=== PATIENT | female | born 1940 | race Caucasian/White ===

== ENCOUNTER 2018-01-05 20:42 | Inpatient (IN) ==
[2018-01-05] MEDS ORDERED: Isovue-370 500 ML INFUS..BTL IV ONE (23:13)
[2018-01-05] MEDS ORDERED: Piperacillin/Tazobactam 3.375 GM in 0.9 % Sodium Chloride Mini Bag 100 ML IVPB ONE (23:18)
[2018-01-05] MEDS ORDERED: *HR* FentaNYL (PF) 100 MCG/2 ML VIAL IVP ONE (23:32)
[2018-01-05] MEDS ORDERED: Ondansetron 4 MG/2 ML VIAL IVP ONE (23:32)
--- NOTE | 2018-01-05 23:48 | Emergency Department Note ---
Disposition Clinical Impression: Abscess of buttock, right Disposition: Still a Patient Condition: Fair Referrals: Evans Arciniega MD [Primary Care Provider] - Forms: ED Satisfaction Letter General Adult HPI - General Chief complaint: ED Skin/Abscess/Foreign Body Stated complaint: sore bottom, poss boil. Time Seen by Provider: 01/05/18 22:51 Source: patient Mode of arrival: ambulatory Limitations: no limitations Nursing Notes Reviewed: Yes Vital Signs Reviewed: Yes - History of Present Illness HPI Narrative: 77-year-old female in no significant past medical history presenting to the emergency department with chief complaint of "boil on my butt". Patient states she noticed the area couple days ago. Denies trying any intervention at home. She states it has just gotten larger and more painful and she came in for further evaluation. Denies any fevers, chest pain, shortness of breath, nausea or vomiting. Patient denies any previous skin infections or MRSA infections. Pain Scale: 8 - Related Data Previous Rx's Medication Instructions Recorded OxyCODONE/APAP 5/325 [Percocet 1 each PO Q6HR PRN 7 Days #28 11/04/17 5/325 MG] tablet Allergies Allergy/AdvReac Type Severity Reaction Status Date / Time No Known Allergies Allergy Verified 01/05/18 21:14 All systems ED: reviewed and negative except as stated. Constitutional: Denies: fever, chills, weakness Eyes: Reports: as per HPI ENT ED: Reports: as per HPI Cardiovascular: Denies: chest pain, palpitations Respiratory: Denies: cough, dyspnea, wheezes Gastrointestinal: Reports: as per HPI Genitourinary: Reports: as per HPI Musculoskeletal: Reports: as per HPI Integumentary: Reports: as per HPI Neurological: Denies: numbness, paresthesias Psychiatric: Reports: as per HPI Endocrine: Reports: as per HPI Hematological/Lymphatic: Reports: as per HPI Allergic/Immunologic: Reports: as per HPI Past Medical History - Past Medical History Attestation: Yes The following information was validated with the patient. Medical history: Reports: asthma, thyroid disease Psychiatric history: Reports: no psych history - Social History Smoking Status: Never smoker Alcohol use: Reports: none Drug use: Reports: none Physical Exam - General Limitations: no limitations General appearance: alert, in no apparent distress - Head Head exam: atraumatic, normocephalic, normal inspection - Eye Eye exam: Present: normal appearance. Absent: scleral icterus, conjunctival injection - ENT ENT exam: normal exam, mucous membranes moist - Neck Neck exam: Present: normal inspection, full ROM. Absent: tenderness, meningismus - Chest Chest inspection: Present: normal inspection, symmetric chest wall rise. Absent : tenderness, rash - Respiratory Respiratory exam: Present: normal lung sounds bilaterally. Absent: respiratory distress, wheezes - Cardiovascular Cardiovascular exam: Present: regular rate, normal rhythm, normal heart sounds - Abdominal Exam Abdominal exam: Present: soft, Non-Tender. Absent: distention, guarding, rebound - Extremities Exam Extremities exam: Present: normal inspection, full ROM - Neurological Exam Neurological exam: Present: alert, oriented X3 - Psychiatric Psychiatric exam: Present: normal affect, normal mood - Skin Skin exam: Present: other (Redness, induration and tenderness located on the right gluteal area. Approximately 4-1/2 inches long. One area has come to ahead but no drainage. No localized area of fluctuance.) Course Course Narrative: 77-year-old female presenting with abscess on her right gluteus mahnaz. Patient afebrile. She is alert and oriented times [place] stable vital signs. We will plan to get basic laboratory analysis and a CT of the pelvis with IV contrast to further image the area. We will provide her with vancomycin and Zosyn along with fentanyl and Zofran. Disposition most likely admission the pending results. Patient agrees with this plan. - Reevaluation(s) Reevaluation #1: Pending labs and CT we will sign the patient out to the night team Dr. Ventura and Dr. Chavez. Vital Signs Temperature 97.9 F 01/05/18 21:11 Pulse Rate 86 01/05/18 21:11 Respiratory Rate 16 01/05/18 21:11 Blood Pressure 132/82 01/05/18 21:11 O2 Sat by Pulse Oximetry 96 01/05/18 21:11 Temperature 97.9 F 01/05/18 21:11 Pulse Rate 95 01/05/18 23:39 Respiratory Rate 16 01/05/18 21:11 Blood Pressure 153/61 01/05/18 23:39 O2 Sat by Pulse Oximetry 96 01/05/18 23:39 Oxygen Delivery Oxygen Delivery Room Air
--- NOTE | 2018-01-05 23:53 | Emergency Department Note ---
Disposition Clinical Impression: Abscess of buttock, right Disposition: Admitted As Inpatient Referrals: Evans Arciniega MD [Primary Care Provider] - Forms: ED Satisfaction Letter General Adult HPI - General Chief complaint: ED Skin/Abscess/Foreign Body Stated complaint: sore bottom, poss boil. Time Seen by Provider: 01/05/18 22:51 Source: patient Mode of arrival: ambulatory Limitations: no limitations - History of Present Illness Pain Scale: 8 - Related Data Previous Rx's Medication Instructions Recorded OxyCODONE/APAP 5/325 [Percocet 1 each PO Q6HR PRN 7 Days #28 11/04/17 5/325 MG] tablet Allergies Allergy/AdvReac Type Severity Reaction Status Date / Time No Known Allergies Allergy Verified 01/05/18 21:14 Constitutional: Denies: fever, chills, weakness Eyes: Reports: as per HPI ENT ED: Reports: as per HPI Cardiovascular: Denies: chest pain, palpitations Respiratory: Denies: cough, dyspnea, wheezes Gastrointestinal: Reports: as per HPI Genitourinary: Reports: as per HPI Musculoskeletal: Reports: as per HPI Integumentary: Reports: as per HPI Neurological: Denies: numbness, paresthesias Psychiatric: Reports: as per HPI Endocrine: Reports: as per HPI Hematological/Lymphatic: Reports: as per HPI Allergic/Immunologic: Reports: as per HPI Past Medical History - Past Medical History Medical history: Reports: asthma, thyroid disease Psychiatric history: Reports: no psych history - Social History Smoking Status: Never smoker Alcohol use: Reports: none Drug use: Reports: none Physical Exam - General Limitations: no limitations General appearance: alert, in no apparent distress Course Vital Signs Temperature 97.9 F 01/05/18 21:11 Pulse Rate 86 01/05/18 21:11 Respiratory Rate 16 01/05/18 21:11 Blood Pressure 132/82 01/05/18 21:11 O2 Sat by Pulse Oximetry 96 01/05/18 21:11 Temperature 97.9 F 01/05/18 21:11 Pulse Rate 95 01/05/18 23:39 Respiratory Rate 16 01/05/18 21:11 Blood Pressure 153/61 01/05/18 23:39 O2 Sat by Pulse Oximetry 96 01/05/18 23:39 Oxygen Delivery Oxygen Delivery Room Air Attestation Statement - Attestation Attestation: I examined this patient and my medical decision-making was reviewed with the Resident Physician. I agree with the documented findings, disposition and treatment plan as described except to the extent set forth below. 77-year-old female in presented to the emergency room for a right buttock abscess. Patient had noted some redness and swelling a few days ago that worsened. She came into the ER due to pain. On exam, patient has a 4-1/2 inch by near 5 inch area of redness and induration consistent with infectious process. It appears as though she may have had a small boil that is now expanded. There is no area of acute fluctuance. There is significant induration. We will check screening lab work, obtain blood cultures, do a CT scan of pelvis with IV contrast and patient will need to be admitted for IV antibiotics based on the size of this infection. Would anticipate a surgical evaluation tomorrow but does not need to be done emergently from the ER. We will start her on Vanco and Zosyn. Admit to hospitalist
[2018-01-06 00:18] LABS: Basophils % 0.2 %; Eosinophils # 0.1 K/mcL (0.0-0.6); Eosinophils % 1.7 %; Hematocrit 40.1 % (35.3-44.9); Immature Granulocytes % 0.4 % (0-4); Lymphocytes # 1.9 K/mcL (0.6-4.6); Lymphocytes % 22.1 %; Mean Corpuscular HGB Conc 32.4 g/dL (31.6-35.5); Mean Corpuscular Hemoglobin 28.4 pg (28.0-33.3); Mean Corpuscular Volume 87.6 fL (83.0-100.0); Mean Platelet Volume 11.7 fL (9.4-12.4); Monocytes # 0.9 K/mcL (0.0-1.3); Monocytes % 10.1 %; Neutrophils # 5.6 K/mcL (1.6-8.9); Platelet Count 208 K/mcL (140-400); Red Blood Count 4.58 M/mcL (3.82-4.97); Red Cell Distribution Width 15.9 % (11.5-14.5); Segmented Neutrophils % 65.5 %
[2018-01-06 00:22] LABS: BUN/Creatinine Ratio 19 (6-26); Blood Urea Nitrogen 16 mg/dL (8-23); Calcium 9.4 mg/dL (8.6-10.3); Carbon Dioxide 24 mEq/L (23-29); Chloride 103 mEq/L (98-107); Glucose 126 mg/dL (70-105); Osmolality,Calculated 287 (280-300); Potassium 3.5 mEq/L (3.5-5.1); Sodium 137 mEq/L (136-145); eGFR For Non-African Americans > 60 (> 60)
--- NOTE | 2018-01-06 01:39 | Emergency Department Note ---
Disposition Clinical Impression: Cellulitis of buttock, right Disposition: Admitted As Inpatient Condition: Good Skin/Abscess/FB HPI Chief complaint: ED Skin/Abscess/Foreign Body Stated complaint: sore bottom, poss boil. Time Seen by Provider: 01/05/18 22:51 Source: patient Mode of arrival: ambulatory Limitations: no limitations Nursing Notes Reviewed: Yes Vital Signs Reviewed: Yes Previous Rx's Medication Instructions Recorded OxyCODONE/APAP 5/325 [Percocet 1 each PO Q6HR PRN 7 Days #28 11/04/17 5/325 MG] tablet Allergies Allergy/AdvReac Type Severity Reaction Status Date / Time No Known Allergies Allergy Verified 01/05/18 21:14 Constitutional: Denies: fever, chills, weakness Eyes: Reports: as per HPI ENT ED: Reports: as per HPI Cardiovascular: Denies: chest pain, palpitations Respiratory: Denies: cough, dyspnea, wheezes Gastrointestinal: Reports: as per HPI Genitourinary: Reports: as per HPI Musculoskeletal: Reports: as per HPI Integumentary: Reports: as per HPI Neurological: Denies: numbness, paresthesias Psychiatric: Reports: as per HPI Endocrine: Reports: as per HPI Hematological/Lymphatic: Reports: as per HPI Allergic/Immunologic: Reports: as per HPI Past Medical History - Past Medical History Medical history: Reports: asthma, thyroid disease Psychiatric history: Reports: no psych history - Social History Smoking Status: Never smoker Alcohol use: Reports: none Drug use: Reports: none Physical Exam - General Limitations: no limitations General appearance: alert, in no apparent distress Course Course Narrative: Patient signed out from day shift team pending final disposition. Please see their documentation for details. In brief she has had pain and redness to her right buttock for a few days. No recent antibiotic use. CT imaging demonstrates cellulitis area labs reviewed and grossly unremarkable. Introduced myself to the patient. She voices no complaints at this time. She received vancomycin and Zosyn. Plan for admission to the hospitalist. Vital Signs Temperature 97.9 F 01/05/18 21:11 Pulse Rate 86 01/05/18 21:11 Respiratory Rate 16 01/05/18 21:11 Blood Pressure 132/82 01/05/18 21:11 O2 Sat by Pulse Oximetry 96 01/05/18 21:11 Temperature 98.1 F 01/06/18 02:46 Pulse Rate 95 01/06/18 02:46 Respiratory Rate 15 01/06/18 02:46 Blood Pressure 144/80 01/06/18 02:46 O2 Sat by Pulse Oximetry 93 01/06/18 02:46 Oxygen Delivery Oxygen Delivery Room Air Skin/Abscess/Foreign Body - MDM Narrative Medical decision making narrative: 77-year-old female with right buttock cellulitis for 2 days. Hemodynamic stable here. Labs reviewed and grossly unremarkable. CT imaging demonstrates cellulitis without evidence of abscess collection. There is also noted to be abnormal findings in the endometrial canal that I suspect will require US evaluation. Patient admitted to the hospital service on vancomycin and Zosyn. - Lab Data Lab results reviewed: Yes I reviewed the patient's lab results. Result diagrams: 01/05/18 23:09 01/05/18 23:09 Lab Results 01/05/18 01/05/18 Range/Units 23:09 23:09 WBC 8.5 (4.3-11.1) K/mcL RBC 4.58 (3.82-4.97) M/mcL Hgb 13.0 (11.5-15.4) g/dL Hct 40.1 (35.3-44.9) % MCV 87.6 (83.0-100.0) fL MCH 28.4 (28.0-33.3) pg MCHC 32.4 (31.6-35.5) g/dL RDW 15.9 H (11.5-14.5) % Plt Count 208 (140-400) K/mcL MPV 11.7 (9.4-12.4) fL Immature Gran % 0.4 (0-4) % Seg Neutrophils % 65.5 % Lymphocytes % 22.1 % Monocytes % 10.1 % Eosinophils % 1.7 % Basophils % 0.2 % Neutrophils # 5.6 (1.6-8.9) K/mcL Lymphocytes # 1.9 (0.6-4.6) K/mcL Monocytes # 0.9 (0.0-1.3) K/mcL Eosinophils # 0.1 (0.0-0.6) K/mcL Basophils # 0.0 (0.0-0.2) K/mcL Sodium 137 (136-145) mEq/L Potassium 3.5 (3.5-5.1) mEq/L Chloride 103 (98-107) mEq/L Carbon Dioxide 24 (23-29) mEq/L BUN 16 (8-23) mg/dL Creatinine 0.86 (0.60-1.20) mg/dL Est GFR ( Amer) > 60 (> 60) Est GFR (Non-Af Amer) > 60 (> 60) BUN/Creatinine Ratio 19 (6-26) Glucose 126 H (70-105) mg/dL Calculated Osmolality 287 (280-300) Calcium 9.4 (8.6-10.3) mg/dL - Radiology Data Radiology results reviewed: Yes I reviewed the patient's radiology results. Pelvis CT 01/06/18 23:13 IMPRESSION: Findings are most compatible with cellulitis involving the right gluteal subcutaneous fat. At this time, no abscess is identified. No soft tissue gas. There is heterogeneous hypodense material noted within the endometrial canal, which is unusual for the patient's age. Follow-up ultrasound is recommended to better evaluate that. D/ / Delmar Vasquez MD / Delmar Vasquez MD Interpreting Provider: Delmar Vasquez MD S.B.A.R. - S.B.A.R. Situation: Demographics, MOA Background: Presenting Complaint, Relevant PMH, Meds, & Allergies Assessment: Course and respsone to treatment, Exam Concerns, Patient/Family Expectation, Pertinant Lab Results Recommendation: Barrier(s) to disposition, Recommendation based on pending studies, treatments, or consults S.B.A.R. Report Given to: Dr. Sandhu Attestation Statement - Attestation Attestation: I examined this patient and my medical decision-making was reviewed with the Resident Physician, Dr. Chavez. I agree with the documented findings, disposition and treatment plan as described except to the extent set forth below. Patient is a 77-year-old white female who was signed out test by Dr. Taylor and Dr. Nichols for follow-up on CT and final disposition. Patient is here with one day history of gradually worsening cellulitis to the right buttock area. Area of inflammation and pain spares the perirectal and rectal area. Patient not on any recent antibiotics, no fevers or chills, no history of falls or trauma. Patient denies any prior history of MRSA infections. I agree with patient's physical exam findings as documented. Vital signs are stable. Patient's laboratory evaluation was back at the time of sign out we were just awaiting CT results. The request was that we would need to pursue surgical consultation if patient had an abscess found on CT. Patient's CT scan shows a right gluteal cellulitis with no evidence of abscess. Patient's antibiotics and arty been ordered by Dr. Taylor and his team. Patient has remained hemodynamically stable. Patient will be admitted to the medicine service we did discuss the case with them and they accepted the patient for admission for further evaluation and management.
[2018-01-06] MEDS ORDERED: Naloxone 0.4 MG/ML INJ IVP PRN (01:46)
--- NOTE | 2018-01-06 01:55 | Internal Med History&Physical ---
Date of Encounter: 01/06/18 Time of Encounter: 01:50 Internal Medicine - H&P: HPI Chief complaint: buttok pain Admitted From: Home Plans for Post Hospital Care: Home History of present illness: Ms. Trejo is a 77 year old female presented with cc of right buttock pain started 2 days ago. Patient's pain was a soreness and continued to worsen. She had boil that developing surrounding erythema with warmth. Patient denies fevers, chills, headache, chest pain, abdominal pain. Denies previous history of skin infections. She denies trauma to the region or insect bite. Patient does not have past medical history of diabetes. She does not take any prescription medications. Past Med Surg Social Fam HX - Past Medical History Medical history: asthma, thyroid disease Psychiatric history: no psych history - Past Surgical History Additional surgical history: L hand - Social History Smoking Status: Never smoker Alcohol use: none Drug use: none Occupational status: retired Current living situation: Home - Independent Activity Level: Independent ambulation Internal Medicine - H&P: Meds OxyCODONE/APAP 5/325 [Percocet 5/325 MG] 1 each PO Q6HR PRN 7 Days #28 tablet [Rx] 3 Allergy/AdvReac Type Severity Reaction Status Date / Time No Known Allergies Allergy Verified 01/05/18 21:14 All Systems PM: A 10-system review of systems was performed and is negative for pertinent findings except as documented above in the HPI. Review of systems: Constitutional: Denies fever, chills HEENT: Denies headache, trauma, blurry vision, eye discharge, ear pain, ear discharge neck pain, sore throat, rhinorrhea Heart: Denies chest pain palpitations, LE edema Lungs: Denies shortness of breath cough Abdomen: Denies abdominal pain nausea vomiting diarrhea MSK: Denies back pain, falls, joint pain Kidney: Denies dysuria, hematuria Skin: Reports right buttock rash, pain Neuro: Denies numbness and tingling Psych: denies axniety, depression - Constitutional Vitals: Temp Pulse Resp BP Pulse Ox 97.9 F 91 16 145/82 97 01/05/18 21:11 01/06/18 01:24 01/05/18 21:11 01/06/18 01:24 01/06/18 01:24 Exam: General: pleasant, without distress HEENT: Head atraumatic, normocephalic, EOMI, PERRL, absent ear discharge or trauma, Moist Mucous Membranes, uvula midline Neck: nontender to palpation, absent lymphadenopathy, Cardiovascualr: Regular rate and rhythm with no murmur, absent gallops or rubs, absent pedal edema, radial pulses 2 out of 4 Lungs: Clear to auscultation bilaterally, not in respiratory distress Abdomen: Soft nontender, nondistended positive bowel sounds, absent hepatomegaly Skin: Right buttock erythema, marked surroundings with pen. Tenderness to touch , warm. At the center of erythema there is a .5cm boil w/o drainiage. There is no fluctuance MSK: absent clubbing, cyanosis, joints without swelling Neuro: Cranial nerves II through XII intact, UE and LE sensation equal bilaterally, UE and LEstrength 5/5, alert oriented 3, Psych: good insight and judgment Internal Med - H&P Results - Labs CBC & Chem 7: 01/05/18 23:09 01/05/18 23:09 Labs: Short CBC 01/05/18 Range/Units 23:09 WBC 8.5 (4.3-11.1) K/mcL Hgb 13.0 (11.5-15.4) g/dL Hct 40.1 (35.3-44.9) % Plt Count 208 (140-400) K/mcL Neutrophils # 5.6 (1.6-8.9) K/mcL BMP 01/05/18 23:09 Sodium 137 Potassium 3.5 Chloride 103 Carbon Dioxide 24 BUN 16 Creatinine 0.86 Glucose 126 H Calcium 9.4 - Impressions ITS Impressions Pelvis CT 01/06/18 23:13 IMPRESSION: Findings are most compatible with cellulitis involving the right gluteal subcutaneous fat. At this time, no abscess is identified. No soft tissue gas. There is heterogeneous hypodense material noted within the endometrial canal, which is unusual for the patient's age. Follow-up ultrasound is recommended to better evaluate that. D/ / Delmar Vasquez MD / Delmar Vasquez MD Interpreting Provider: Delmar Vasquez MD - Assessment and plan (1) Cellulitis of buttock, right Current Visit: Yes Status: Acute Assessment and plan: Patient presents with right buttock pain She has significant erythema on the right buttock with pain and warmth CT negative for abscess or soft tissue gas shows right gluteal subcutaneous fat cellulitis Patient does not have sirs criteria Plan: Erythema is marked. Vancomycin and Unasyn. Blood cultures drawn. Likely can be transitioned to by mouth antibiotics in 24-48 hours as patient does not exhibit signs of sepsis and does not have an abscess. (2) DVT prophylaxis Current Visit: Yes Status: Acute Assessment and plan: Ambulate 3 times a day, EPCD (3) Abnormal CT scan, pelvis Current Visit: Yes Status: Acute Assessment and plan: Patient found to have hypodense material in the endometrial canal plan: follow up with PCP. - Time Spent With Patient Total time spent is greater than 50% in coordination of care (as documented) at patient's floor/unit and/or counseling patient:
[2018-01-06] MEDS: Acetaminophen 325 MG TABLET PO PRN ×3 (03:14→17:05)
[2018-01-06] MEDS: Ampicillin/Sulbactam 1,500 MG in 0.9 % Sodium Chloride Mini Bag 100 ML IVPB SCH ×4 (06:03→23:13)
--- NOTE | 2018-01-06 13:36 | Discharge Summary ---
<Bee Seth - Last Filed: 01/06/18 14:07> - NOTES TO OUTPATIENT PROVIDER Notes to Outpatient Provider: Patient treated for cellulitis confirmed by CT scan pelvis. Give doxycycline and augmentin for 7 days of antibiotics total. CT pelvis showed hypodense material in the endometrial canal. Radiology recommend f /u ultrasound. Date of Encounter: 01/06/18 Time of Encounter: 13:30 - Discharge Diagnosis (1) Cellulitis of buttock, right Priority: Primary Status: Acute (2) DVT prophylaxis Priority: Secondary Status: Acute (3) Abnormal CT scan, pelvis Priority: Secondary Status: Acute Hospital course: Patient is a very pleasant 77 year old female with PMH gerd who presented to [facility] on 01/06/18 with 2 days of worsening right buttock pain. She had a boil that developed surrounding erythema, warmth and tenderness. Patient also reported having diarrhea around the same time that she developed the boil. Patient denied fevers, chills, headache, chest pain, and abdominal pain. She denied history of skin infections. She denied trauma to the region or insect bite. She does not have a past medical history of diabetes. CT of the pelvis with IV contrast confirmed cellulitis of the right gluteal subcutaneous fat. There was no abscess or soft tissue gas. No osteomyelitis was noted. CT did note that there was heterogenous hypodense material noted within the endometrial canal that is unusual for the patients age. Patient has been notified and understands that she needs to follow-up with her PCP for an ultrasound to further evaluate those findings. . Patient did not present as septic, she did not have a fever, tachycardia, or tachypnea. Her WBC were 8.5. Marker line was placed around the area of redness. Patient was started on Zosyn 3.375g and Vancomycin 1, 250mg. She was then switched from Zosyn to Unasyn 1500mg. This is hospitalization day number 1. The patient was seen and examined at bedside this morning. No acute events were reported admission early this AM. Today, patient states that she is still having significant tenderness in her right buttock. The patient denies any new complaints today. The patient denies any lightheadedness, dizziness, vision changes, headache, chest pain, palpitations, cough, wheezing, sputum production, abdominal pain, nausea, vomiting, bowel changes, urinary changes, edema, fever or chills. The cellulitis has not extended beyond the marker line. When patient was examined this afternoon, the cellulitis had begun to recede from the previously drawn marker line. Patient prefers to take PO antibiotics at home. We will give her PO Augmentin and Doxycycline because of her risk of enteral contamination of the wound from her diarrhea. She knows she will need to follow up with her PCP early next week. We will also give her Ibuprofen for pain. She is stable for discharge at this time. She was alongside her daughter and stated a clear understanding of the treatment and plan. Discharge discussed with: patient, family, nurse - Time Spent with Patient Total time spent providing and/or coordinating discharge services: Greater than 30 minutes - Discharge Medications Prescriptions: Ondansetron HCl [Zofran] 4 mg PO Q8HR PRN 10 Days #30 tab PRN Reason: Nausea Clindamycin HCl 300 mg PO QID 10 Days #40 capsule HYDROcodone/Acet 7.5/325 mg [[place] 7.5-325 mg] 1 tab PO TID 5 Days #15 tablet Home Medications: Acetaminophen [Tylenol] 500 mg PO Q6HR PRN 01/06/18 [History] Albuterol Sulfate [Ventolin Hfa] 2 puff IH Q4-6H PRN 01/06/18 [History] Amoxicillin/Clavulanate [Augmentin] 500 mg PO BIDWM #12 tablet 01/06/18 [Rx] Brimonidine 0.2% [Alphagan] 1 drop RIGHT EYE BID 01/06/18 [History] Doxycycline Hyclate 100 mg PO BID #12 tablet 01/06/18 [Rx] Gabapentin [Neurontin] 100 - 200 mg PO HS 01/06/18 [History] Ibuprofen 800 mg PO Q6H PRN #20 tablet 01/06/18 [Rx] Omeprazole [PriLOSEC] 20 mg PO DAILY 01/06/18 [History] Clindamycin HCl 300 mg PO QID 10 Days #40 capsule 01/09/18 [Rx] HYDROcodone/Acet 7.5/325 mg [[place] 7.5-325 mg] 1 tab PO TID 5 Days #15 tablet [Rx] Ondansetron HCl [Zofran] 4 mg PO Q8HR PRN 10 Days #30 tab 01/09/18 [Rx] Allergies/Adverse Reactions: 3 Allergy/AdvReac Type Severity Reaction Status Date / Time No Known Allergies Allergy Verified 01/06/18 08:29 Date of admission: 01/06/18 02:09 Primary care physician: Evans Arciniega MD Discharging clinician: Avelino Meza Anticipated date of discharge: 01/07/18 - Constitutional Vitals: Temp Pulse Resp BP Pulse Ox 98.2 F 77 16 102/65 91 01/06/18 10:24 01/06/18 10:24 01/06/18 10:24 01/06/18 10:24 01/06/18 10:24 Exam: GENERAL: Patient is a well-nourished 77 year old female in no acute distress with appropriate affect. Alert & oriented x3. HEENT: Head is normocephalic, atraumatic, well formed. EYES: PERRLA, EOMI. MOUTH : Oropharynx clear. Mucous membranes moist. NECK: Supple, no masses, trachea midline. No JVD noted. CV: Regular rate and rhythm. Normal S1, S2 with no clicks, murmurs, gallops, or rubs. PULMONARY: Breath sounds are clear and equal bilaterally. Symmetrical chest expansion. No wheeze, rales or rhonchi. Good effort. GI: Abdomen is soft, nondistended, nontender, positive bowel sounds x 4 present and appropriate. No peritoneal signs or guarding. No palpable masses. SKIN: Area of erythema on right buttock that has not extended beyond marker line. Tender to touch, warm. At the center of the erythema there is a 0.5cm boil without drainage. No fluctuance. NEUROLOGICAL: Alert, awake. CN II-XII grossly intact. Patient is moving all extremities and following commands appropriately. No focal deficits are noted. Muscle strength 5/5 x 4 extremities. VASCULAR/EXTREMITIES: No cyanosis, clubbing, or edema in lower extremities. - Patient Status Disposition: Home, Self-Care Condition: Good Functional capacity at discharge: independent ambulation Overall status at discharge: patient is progressing back to baseline - Discharge Instructions Instructions: Cellulitis (DC), Acute Wound Care (DC), Incision and Drainage (DC ) Follow Up With: Magno Burroughs MD [Non-Partnered Physician] - 01/16/18 9:00 am (surgery follow- up) Evans Arciniega MD [Primary Care Provider] - 01/16/18 1:30 pm Additional Instructions: -finish antibiotics to completion -take ibuprofen as needed for pain. May also use tylenol if needed. -follow up with PCP in a week -return to ED if you develop fever, chills, worsened pain, spreading of erythema -follow up with your PCP on hypodense material in the endometrial canal. Will need ultrasound. Wound care- Continue daily wound care- cleanse with soap and water in the shower daily, pack open with with kerlex moistened with 0.9NS, cover with dry dressing and tape to secure daily and prn if soiled. (daughter states that she can do daily dressing changes) - Diet and Activity Activity: resume usual activities as tolerated Diet: advance to your usual diet <Avelino Meza - Last Filed: 01/09/18 14:39> Date of Encounter: 01/09/18 - Discharge Diagnosis (1) Cellulitis of buttock, right Status: Acute (2) Infected sebaceous cyst Priority: Secondary Status: Suspected (3) Abnormal CT scan, pelvis Status: Acute (4) Hypokalemia Priority: Secondary Status: Resolved Hospital course: Ms. Trejo is a 77 year old female - Time Spent with Patient Total time spent providing and/or coordinating discharge services: 37min Date of admission: 01/08/18 17:30 Primary care physician: Evans Arciniega MD - Constitutional Vitals: Temp Pulse Resp BP Pulse Ox 97.5 F L 55 16 114/66 92 01/09/18 07:04 01/09/18 07:04 01/09/18 07:04 01/09/18 07:04 01/09/18 08:15 - Attending Attestation The history, physical exam, and medical decision making was performed by the medical student either while I was physically present and actively involved or I personally re-performed the exam and medical decision making. I have verified the accuracy of the medical student's documentation with regards to the history, physical exam findings, and medical decision making on 01/09/18. Ms Trejo was admitted with cellulitis R buttock. She was placed on IV abx. Originally she was to have been discharged on 01/06 but area remained indurated and red. On Sunday 01/07 she developed some drainage and she was taken to OR on 01/08 for I&D. Wound is now packed. She is afebrile and ready for discharge home today. Exam alert Comfortable Mucus membranes dry Heart reg No wheeze abd soft Dressing intact Plan D/C home today PO Cl[place], Zofran and [place] Follow up with Dr. Burroughs 01/16 Addendum entered and electronically signed by Candice Melton 01/09/18 10:39: Patient was not discharged on 01/06/18. She developed drainage from a small open area in the center of the erythema on her right buttock. Surgery was consulted. Stat ultrasound was ordered for further evaluation of possible fluid/abscess collection. An ill-defined hypoechoic area was present just inferior to the dermis, measuring 2.2x1.1x1.0cm. A drainage tract to the skin was seen. Surgery took the patient to the OR for I&D. They were able to drain a significant amount of purulent material before packing the wound. Patient was seen and examined at bedside this AM. She is still experiencing some pain at the surgical site but says it is manageable with pain medication. No acute events were reported overnight. Patient does not have any new complaints at this time. The patient denies any lightheadedness, dizziness, vision changes, headache, chest pain, palpitations, shortness of breath, cough, wheezing, sputum production, abdominal pain, nausea, vomiting, bowel changes, urinary changes, edema, fever or chills. Surgery has instructed daily wound care including cleansing with soap and water in the shower daily, pack open with kerlex moistened with 0.9NS, cover with dry dressing and tape daily and PM if soiled. Patient's daughter says that she can do the daily dressing changes and has been instructed on how to do so. We will discharge the patient on PO Clindamycin to provide MRSA and anaerobic coverage since patient may have had fecal wound contamination since she had diarrhea around the time the wound developed. Surgery follow-up scheduled for 01/16/[address] Burroughs. Patient is stable for discharge at this time.
--- NOTE | 2018-01-06 15:38 | Event Note ---
<Bee Seth - Last Filed: 01/06/18 15:32> Date of Encounter: 01/06/18 Time of Encounter: 09:00 Subjective: Patient is a very pleasant 77 year old female with PMH gerd who presented to [facility] on 01/06/18 with 2 days of worsening right buttock pain. She had a boil that developed surrounding erythema, warmth and tenderness. She was found to have cellulitis of the right buttock. Today she denies fever, chills, worsening pain. 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 Physical exam: GENERAL: Patient is a well-nourished 77 year old female in no acute distress with appropriate affect. Alert & oriented x3. HEENT: Head is normocephalic, atraumatic, well formed. EYES: PERRLA, EOMI. MOUTH : Oropharynx clear. Mucous membranes moist. NECK: Supple, no masses, trachea midline. No JVD noted. CV: Regular rate and rhythm. Normal S1, S2 with no clicks, murmurs, gallops, or rubs. PULMONARY: Breath sounds are clear and equal bilaterally. Symmetrical chest expansion. No wheeze, rales or rhonchi. Good effort. GI: Abdomen is soft, nondistended, nontender, positive bowel sounds x 4 present and appropriate. No peritoneal signs or guarding. No palpable masses. SKIN: Area of erythema on right buttock that has not extended beyond marker line. Tender to touch, warm. At the center of the erythema there is a 0.5cm boil without drainage. No fluctuance. NEUROLOGICAL: Alert, awake. CN II-XII grossly intact. Patient is moving all extremities and following commands appropriately. No focal deficits are noted. Muscle strength 5/5 x 4 extremities. VASCULAR/EXTREMITIES: No cyanosis, clubbing, or edema in lower extremities. A/P: cellulitis of right buttock CT negative for abscess or soft tissue gas shows right gluteal subcutaneous fat cellulitis. Afebrile, WBC WNL blood cultures negative to date -continue IV vancomycin and unasyn -discharge tomorrow Abnormal CT scan CT scan pelvis showed hypodense material in the endometrial canal patient was informed and instructed to follow up with her PCP for an ultrasound DVT prophylaxis Ambulate 3 times a day, EPCD <Avelino Meza - Last Filed: 01/06/18 18:39> Date of Encounter: 01/06/18 I examined this patient and my medical decision-making was reviewed with the Resident Physician on 01/06/18. I agree with the documented findings, disposition and treatment plan as described except to the extent set forth below. Ms Trejo was placed in observation earlier today for cellulitis of R buttocks. She still has a lot of pain. No fever or chills. Exam R buttocks with large area of erythema. No discrete fluid collection. Agree with assessment and plan as above and in H&P
[2018-01-06] MEDS: *HR* HYDROcodone/Acet 5/325 mg TABLET PO PRN (23:12)
[2018-01-07] MEDS: Ampicillin/Sulbactam 1,500 MG in 0.9 % Sodium Chloride Mini Bag 100 ML IVPB SCH ×3 (05:54→17:26)
[2018-01-07] MEDS: *HR* HYDROcodone/Acet 5/325 mg TABLET PO PRN ×2 (07:50→16:34)
[2018-01-07 10:24] LABS: Hematocrit 38.6 % (35.3-44.9); Hemoglobin 12.4 g/dL (11.5-15.4); Mean Corpuscular HGB Conc 32.1 g/dL (31.6-35.5); Mean Corpuscular Hemoglobin 28.8 pg (28.0-33.3); Mean Corpuscular Volume 89.6 fL (83.0-100.0); Mean Platelet Volume 11.2 fL (9.4-12.4); Platelet Count 210 K/mcL (140-400); Red Blood Count 4.31 M/mcL (3.82-4.97); Red Cell Distribution Width 15.8 % (11.5-14.5)
[2018-01-07 10:50] LABS: BUN/Creatinine Ratio 13 (6-26); Blood Urea Nitrogen 12 mg/dL (8-23); Calcium 8.5 mg/dL (8.6-10.3); Carbon Dioxide 26 mEq/L (23-29); Chloride 104 mEq/L (98-107); Glucose 146 mg/dL (70-105); Magnesium 1.8 mg/dL (1.6-2.6); Osmolality,Calculated 290 (280-300); Potassium 3.4 mEq/L (3.5-5.1); Sodium 139 mEq/L (136-145); eGFR For Non-African Americans > 60 (> 60)
--- NOTE | 2018-01-07 11:06 | General Surgery Consult Note ---
<Herve Rios R - Last Filed: 01/07/18 13:16> Date of Encounter: 01/07/18 Time of Encounter: 10:40 Assessment and Plan (1) Cellulitis of buttock, right Current Visit: Yes Status: Acute Plan: Stat Ultrasound for further evaluation of possible fluid/abscess collection. I&D vs. abx alone pending US findings Continue abx comfort care and pain management History of Present Illness Consult date: 01/07/18 (Dr. Burroughs) Reason for consult: other (Right buttock cellulitis and fluid collection) Requesting physician: Avelino Meza History of present illness: Mrs. Trejo is a 77-year-old female with no significant past medical history. Patient was seen and evaluated this morning with history obtained from the patient, chart, and daughter. Patient presented to the ED for evaluation on evening, 01/05/2018, for evaluation of right buttock pain, swelling, redness. Patient reports that began as a small boil or pimple in the central right buttock approximately 5 days ago. The patient noted increasing pain and spreading redness which prompted her visit for emergency evaluation. She denies nausea, vomiting, diarrhea, constipation. Denies fever or chills. Denies previous occurrence of cellulitis, abscess, or incision and drainage. No recent trauma or injury to the area. Vital signs were obtained and found to be within normal limits, afebrile. WBC 8.[address] pelvis was obtained, which did not reveal significant fluid collection or abscess. Patient was admitted for treatment of cellulitis. Has been treated with vancomycin and Unasyn. Primary team did notice draining as well as possible fluid collection on physical exam today. Surgery was consultation for further evaluation and recommendations. Patient reports that pain is still present, however improved and controlled with pain medication. Area is painful to lay on, patient lays on her left side while in bed. No difficulty with ambulation. Continues to deny nausea, vomiting, or fever. Past Med Surg Social Fam HX - Past Medical History Medical history: asthma, thyroid disease Psychiatric history: no psych history - Past Surgical History Additional surgical history: L hand - Social History Smoking Status: Never smoker Alcohol use: none Drug use: none - Family History Mother Living Status: Hx Family Cancer: Yes (Lung) Father Living Status: Hx Family Cardiac Disorders: Yes Medications and Allergies Acetaminophen [Tylenol] 500 mg PO Q6HR PRN 01/06/18 [History] Albuterol Sulfate [Ventolin Hfa] 2 puff IH Q4-6H PRN 01/06/18 [History] Amoxicillin/Clavulanate [Augmentin] 500 mg PO BIDWM #12 tablet 01/06/18 [Rx] Brimonidine 0.2% [Alphagan] 1 drop RIGHT EYE BID 01/06/18 [History] Doxycycline Hyclate 100 mg PO BID #12 tablet. 01/06/18 [Rx] Gabapentin [Neurontin] 100 - 200 mg PO HS 01/06/18 [History] Ibuprofen 800 mg PO Q6H PRN #20 tablet 01/06/18 [Rx] Omeprazole [PriLOSEC] 20 mg PO DAILY 01/06/18 [History] 3 Allergy/AdvReac Type Severity Reaction Status Date / Time No Known Allergies Allergy Verified 01/06/18 08:29 Review of Systems All systems PM: The remainder of the systems were reviewed and are negative - Constitutional no chills, no fever(s) - Genitourinary Genitourinary: no difficulty voiding, no dysuria - Integumentary erythema (Right buttock), swelling General Surgery Exam Initial Vital Signs Temp Pulse Resp BP Pulse Ox 97.9 F 86 16 132/82 96 01/05/18 21:11 01/05/18 21:11 01/05/18 21:11 01/05/18 21:11 01/05/18 21:11 - General physical appearance well developed, well nourished, no distress, moderate pain - Eyes normal ocular movement - ENT normal mucosa, atraumatic, normocephalic - Neck trachea midline, no lymphadectomy - Respiratory normal expansion, normal respiratory effort - Cardiovascular Cardiovascular exam: Present: RRR - Abdomen Abdomen general surgery: Present: bowel sounds present, soft, non tender - Integumentary Integumentary general surgery: Present: warm and dry, other (Erythema centrally located on the right buttock, well within the surrounding pen markings. A 1 cm x 1 cm boil is centrally located within the erythematous area, minimal nonpurulent drainage.) Exam Initial Vital Signs Temp Pulse Resp BP Pulse Ox 97.9 F 86 16 132/82 96 01/05/18 21:11 01/05/18 21:11 01/05/18 21:11 01/05/18 21:11 01/05/18 21:11 Results - Labs 01/07/18 09:56 01/07/18 09:56 Abnormal lab results RDW 15.8 % (11.5-14.5) H 01/07/18 09:56 Potassium 3.4 mEq/L (3.5-5.1) L 01/07/18 09:56 Glucose 146 mg/dL (70-105) H 01/07/18 09:56 Calcium 8.5 mg/dL (8.6-10.3) L 01/07/18 09:56 Diabetes panel 01/07/18 Range/Units 09:56 Sodium 139 (136-145) mEq/L Potassium 3.4 L (3.5-5.1) mEq/L Chloride 104 (98-107) mEq/L Carbon Dioxide 26 (23-29) mEq/L BUN 12 (8-23) mg/dL Creatinine 0.90 (0.60-1.20) mg/dL Glucose 146 H (70-105) mg/dL Calcium 8.5 L (8.6-10.3) mg/dL Calcium panel 01/07/18 Range/Units 09:56 Calcium 8.5 L (8.6-10.3) mg/dL Pituitary panel 01/07/18 Range/Units 09:56 Sodium 139 (136-145) mEq/L Potassium 3.4 L (3.5-5.1) mEq/L Chloride 104 (98-107) mEq/L Carbon Dioxide 26 (23-29) mEq/L BUN 12 (8-23) mg/dL Creatinine 0.90 (0.60-1.20) mg/dL Glucose 146 H (70-105) mg/dL Calcium 8.5 L (8.6-10.3) mg/dL Adrenal panel 01/07/18 Range/Units 09:56 Sodium 139 (136-145) mEq/L Potassium 3.4 L (3.5-5.1) mEq/L Chloride 104 (98-107) mEq/L Carbon Dioxide 26 (23-29) mEq/L BUN 12 (8-23) mg/dL Creatinine 0.90 (0.60-1.20) mg/dL Glucose 146 H (70-105) mg/dL Calcium 8.5 L (8.6-10.3) mg/dL All other labs normal. Consult Discharge Plan - Plan Additional Instructions: -finish antibiotics to completion -take ibuprofen as needed for pain. May also use tylenol if needed. -follow up with PCP in a week -return to ED if you develop fever, chills, worsened pain, spreading of erythema -follow up with your PCP on hypodense material in the endometrial canal. Will need ultrasound. Referrals: Evans Arciniega MD [Primary Care Provider] - Prescriptions: Amoxicillin/Clavulanate [Augmentin] 500 mg PO BIDWM #12 tablet Doxycycline Hyclate 100 mg PO BID #12 tablet. Ibuprofen 800 mg PO Q6H PRN #20 tablet PRN Reason: Pain <Magno Burroughs - Last Filed: 01/07/18 19:01> Date of Encounter: 01/07/18 Review of Systems All systems PM: The remainder of the systems were reviewed and are negative General Surgery Exam Initial Vital Signs Temp Pulse Resp BP Pulse Ox 97.9 F 86 16 132/82 96 01/05/18 21:11 01/05/18 21:11 01/05/18 21:11 01/05/18 21:11 01/05/18 21:11 Exam Initial Vital Signs Temp Pulse Resp BP Pulse Ox 97.9 F 86 16 132/82 96 01/05/18 21:11 01/05/18 21:11 01/05/18 21:11 01/05/18 21:11 01/05/18 21:11 Results - Labs 01/07/18 09:56 01/07/18 09:56 Abnormal lab results RDW 15.8 % (11.5-14.5) H 01/07/18 09:56 Potassium 3.4 mEq/L (3.5-5.1) L 01/07/18 09:56 Glucose 146 mg/dL (70-105) H 01/07/18 09:56 Calcium 8.5 mg/dL (8.6-10.3) L 01/07/18 09:56 Diabetes panel 01/07/18 Range/Units 09:56 Sodium 139 (136-145) mEq/L Potassium 3.4 L (3.5-5.1) mEq/L Chloride 104 (98-107) mEq/L Carbon Dioxide 26 (23-29) mEq/L BUN 12 (8-23) mg/dL Creatinine 0.90 (0.60-1.20) mg/dL Glucose 146 H (70-105) mg/dL Calcium 8.5 L (8.6-10.3) mg/dL Calcium panel 01/07/18 Range/Units 09:56 Calcium 8.5 L (8.6-10.3) mg/dL Pituitary panel 01/07/18 Range/Units 09:56 Sodium 139 (136-145) mEq/L Potassium 3.4 L (3.5-5.1) mEq/L Chloride 104 (98-107) mEq/L Carbon Dioxide 26 (23-29) mEq/L BUN 12 (8-23) mg/dL Creatinine 0.90 (0.60-1.20) mg/dL Glucose 146 H (70-105) mg/dL Calcium 8.5 L (8.6-10.3) mg/dL Adrenal panel 01/07/18 Range/Units 09:56 Sodium 139 (136-145) mEq/L Potassium 3.4 L (3.5-5.1) mEq/L Chloride 104 (98-107) mEq/L Carbon Dioxide 26 (23-29) mEq/L BUN 12 (8-23) mg/dL Creatinine 0.90 (0.60-1.20) mg/dL Glucose 146 H (70-105) mg/dL Calcium 8.5 L (8.6-10.3) mg/dL All other labs normal. - Attending Attestation patient seen and examined. i have reviewed all notes, labs, and imaging. i agree with the above assessment and plan and wish to add the following... 77F with R buttock abscess confirmed with US; plan for i&D in AM; NPO at midnight IVF abx OR on 01/08
--- NOTE | 2018-01-07 16:10 | Internal Med Progress Note ---
Hospitalist Progress Note - Encounter Date of Encounter: 01/07/18 Time of Encounter: 09:30 - Subjective Interval History: Ms Trejo is currently in observation for cellulitis of R buttocks. She remains moderate to high risk. Ms Trejo is still having a lot of pain in R buttocks area. No fever or chills. Did not sleep well. No GI issues. No CP or SOB. - Exam Vitals: Temp Pulse Resp BP Pulse Ox 99.2 F 88 15 121/73 93 01/07/18 16:01 01/07/18 16:01 01/07/18 16:01 01/07/18 16:01 01/07/18 16:01 Exam: General: Alert and oriented. Moderate distress from pain. Skin: Normal color, no rash, no lesions. Large area of erythema on R buttocks. Improved from yesterday. Some drainage noted with small open area mid erythema. H: Normocephalic. EENT: EOMI, pupils equal. Mucus membranes moist. No lesion. Cardiovascular: Normal S1 & S2, no rubs, murmurs or gallops. No JVD. Pulse regular. Lungs: Normal breath sounds, no wheezes or crackles. Abdomen: Soft, non-tender, no rigidity. Normal bowel sounds. Extremities: No deformity, no edema or tenderness, no joint swelling or clubbing. Neurological: Normal cognition and motor skills. Pulses: Carotid and radial pulses normal +2. Rest of the physical exam is non contributory - Assessment and Plan (1) Cellulitis of buttock, right Current Visit: Yes Status: Acute Assessment and Plan: Area of erythema is improving though there is drainage and probably an open area now with surrounding induration. Will ask surgery to see for possible drainage. Continue IV abx for now. (2) DVT prophylaxis Current Visit: Yes Status: Acute Assessment and Plan: Ambulate 3 times a day, EPCD (3) Abnormal CT scan, pelvis Current Visit: Yes Status: Acute Assessment and Plan: Patient found to have hypodense material in the endometrial canal plan: follow up with PCP. - Time Spent with Patient Total time spent is greater than 50% in coordination of care (as documented) at patient's floor/unit and/or counseling patient: Internal Medicine: Result - Labs CBC & Chem 7: 01/07/18 09:56 01/07/18 09:56 Labs: Short CBC 01/07/18 Range/Units 09:56 WBC 8.8 (4.3-11.1) K/mcL Hgb 12.4 (11.5-15.4) g/dL Hct 38.6 (35.3-44.9) % Plt Count 210 (140-400) K/mcL BMP 01/07/18 09:56 Sodium 139 Potassium 3.4 L Chloride 104 Carbon Dioxide 26 BUN 12 Creatinine 0.90 Glucose 146 H Calcium 8.5 L - Impressions Impressions Extremity Ultrasound 01/07/18 12:28 IMPRESSION: Irregular hypoechoic area just deep to the dermis, measuring approximately 2.2 x 1.1 x 1.0 cm. A small draining tract to the skin is visualized. This appearance is most consistent with a sebaceous cyst, although superinfection/a small abscess cannot be radiographically excluded. D/ / Kem Rodriguez MD / Kem Rodriguez MD Interpreting Provider: Kem Rodriguez MD Consult Discharge Plan - Plan Additional Instructions: -finish antibiotics to completion -take ibuprofen as needed for pain. May also use tylenol if needed. -follow up with PCP in a week -return to ED if you develop fever, chills, worsened pain, spreading of erythema -follow up with your PCP on hypodense material in the endometrial canal. Will need ultrasound. Referrals: Evans Arciniega MD [Primary Care Provider] - Prescriptions: Amoxicillin/Clavulanate [Augmentin] 500 mg PO BIDWM #12 tablet Doxycycline Hyclate 100 mg PO BID #12 tablet. Ibuprofen 800 mg PO Q6H PRN #20 tablet PRN Reason: Pain
[2018-01-07] MEDS: Acetaminophen 325 MG TABLET PO PRN (19:46)
[2018-01-07] MEDS ORDERED: Gabapentin 100 MG CAPSULE PO SCH (21:00)
[2018-01-08] MEDS: Ampicillin/Sulbactam 1,500 MG in 0.9 % Sodium Chloride Mini Bag 100 ML IVPB SCH ×4 (00:58→18:04)
[2018-01-08] MEDS ORDERED: Lidocaine -MPF 4% 5 ML AMPUL ONE (07:42)
[2018-01-08] MEDS ORDERED: *HR* Propofol 200 MG/20 ML VIAL IVP ONE (07:42)
[2018-01-08] MEDS ORDERED: *HR* Midazolam HCl 2 MG/2 ML VIAL ONE (07:42)
[2018-01-08] MEDS ORDERED: *HR* FentaNYL (PF) 100 MCG/2 ML VIAL ONE (07:42)
[2018-01-08] MEDS ORDERED: Dexamethasone 4 MG/ML VIAL ONE ×2 (07:42)
[2018-01-08] MEDS ORDERED: Lidocaine -MPF 2% 2 ML VIAL ONE ×2 (07:42)
[2018-01-08] MEDS ORDERED: Ondansetron 4 MG/2 ML VIAL ONE (07:42)
[2018-01-08] MEDS ORDERED: *HR* Succinylcholine 200 MG/10 ML VIAL IVP ONE (07:42)
[2018-01-08] MEDS ORDERED: Albuterol 2.5 MG/3 ML NEBULIZER ONE (08:26)
[2018-01-08] MEDS ORDERED: Albuterol 2.5 MG/3 ML NEBULIZER IH ONE (08:27)
--- NOTE | 2018-01-08 08:29 | Anesthesia Evaluation PreOp ---
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 01/06/18 [Rx] Gabapentin [Neurontin] 100 - 200 mg PO HS 01/06/18 [History] Ibuprofen 800 mg PO Q6H PRN #20 tablet 01/06/18 [Rx] Omeprazole [PriLOSEC] 20 mg PO DAILY 01/06/18 [History] 3 Allergy/AdvReac Type Severity Reaction Status Date / Time No Known Allergies Allergy Verified 01/06/18 08:29 - Meds/Allergy Pre-op Review Medications Reviewed: Yes Allergies Reviewed: Yes Beta Blockers on Current Med List: No Anesthesia Results - Labs 01/07/18 09:56 01/07/18 09:56 Anesthesia Exam Selected Entries 01/08/18 06:24 Temperature 98.7 F Pulse Rate 87 Respiratory Rate 16 Blood Pressure 151/72 O2 Sat by Pulse Oximetry 92 Weight: 85 kg NPO (# of Hours): over 8 hours - HEENT Pupil (Motor): Pupils equal Teeth: Prosthesis (2 partial plates) Oral Opening: Greater than 3 - Cardiac Rhythm: Regular Murmur: None - Pulmonary Breath Sounds: bilateral Clear Respiratory Effort: Symmetrical Anesthesia Assess/Plan ASA Score: 2 Modified [place] Scale for Level of Consciousness: Cooperative, oriented, and tranquil Anesthetic Plan: General Recovery Plan: PACU (Discussed GA and MAC, agreed to proceed.)
[2018-01-08] MEDS ORDERED: Ringers Solution, Lactated 1,000 ML IVC SCH ×2 (08:30→10:00)
--- NOTE | 2018-01-08 09:21 | Anesthesia Evaluation Post Op ---
Date of Encounter: 01/08/18 Time of Encounter: 10:25 - Vital Signs Vital Signs: Selected Entries 01/08/18 10:17 01/08/18 10:27 Temperature 98.2 F Pulse Rate 89 Respiratory Rate 18 Blood Pressure 130/72 O2 Sat by Pulse Oximetry 96 - Lungs Lungs: Clear Ascult./Percussion - Airway Airway: Non-obstructed - Cardiovascular Regular Rate - Mental Status Mental Status: Alert & Oriented, Answers Appropriately - Nausea Vomiting Nausea Vomiting: Not Present - Hydration Hydration: Ice chips - Discharge PostOp Status: Transfer Patient to floor
[2018-01-08] MEDS ORDERED: *HR* OxyCODONE Immed Rel 5 MG TABLET PO PRN ×2 (09:53→11:27)
[2018-01-08] MEDS ORDERED: Ondansetron 4 MG/2 ML VIAL IVP ONE (09:53)
[2018-01-08] MEDS: *HR* Morphine 2 MG/ML SYRINGE IVP PRN ×2 (10:04→10:14)
[2018-01-08 10:43] LABS: Hematocrit 36.2 % (35.3-44.9); Hemoglobin 11.7 g/dL (11.5-15.4); Mean Corpuscular HGB Conc 32.3 g/dL (31.6-35.5); Mean Corpuscular Hemoglobin 29.2 pg (28.0-33.3); Mean Corpuscular Volume 90.3 fL (83.0-100.0); Mean Platelet Volume 10.7 fL (9.4-12.4); Platelet Count 203 K/mcL (140-400); Red Blood Count 4.01 M/mcL (3.82-4.97); Red Cell Distribution Width 15.6 % (11.5-14.5)
--- NOTE | 2018-01-08 11:05 | Operative Note ---
Date of procedure: 01/08/18 Pre-op diagnosis: right sided buttock abscess Post-op diagnosis: same Procedure: incision and drainage of right buttock abscess Implants: none Complications: none Anesthesia: GETA Surgeon: Magno Burroughs Was there an recovery assistant present: No Greenhouse Technician Other: Jaja June Estimated blood loss (cc): 5 Specimen: culture of abscess Condition: stable Disposition: PACU Procedure in Detail: patient was brought into the operating room suite. mechanical dvt prophylaxis was placed. She underwent smooth induction of anesthesia. She was placed in the prone position. Preoperative antibiotics were given. Prepped and draped in the usual fashion. A timeout was held identifying correct patient, pathology ,procedure, and physician. I started by creating a cruciate incision. I then took some culture swabs. I then used the fraa instruments to spread the subcutaneous tissue and break up loculation. THere was significant drainage of purulent material. I then irrigated with saline and packed with 4x4 guaze and ABD pad. The patient tolerated the procedure and was escorted to the floor in stable condition.
[2018-01-08 11:07] LABS: BUN/Creatinine Ratio 13 (6-26); Blood Urea Nitrogen 9 mg/dL (8-23); Calcium 8.3 mg/dL (8.6-10.3); Carbon Dioxide 27 mEq/L (23-29); Chloride 105 mEq/L (98-107); Glucose 115 mg/dL (70-105); Magnesium 1.8 mg/dL (1.6-2.6); Osmolality,Calculated 284 (280-300); Potassium 3.7 mEq/L (3.5-5.1); Sodium 137 mEq/L (136-145); eGFR For Non-African Americans > 60 (> 60)
[2018-01-08] MEDS ORDERED: *HR* HYDROcodone/Acet 5/325 mg TABLET PO PRN (11:27)
[2018-01-08] MEDS ORDERED: Naloxone 0.4 MG/ML INJ IVP PRN (11:27)
[2018-01-08] MEDS ORDERED: Acetaminophen 325 MG TABLET PO PRN (11:27)
[2018-01-08] MEDS ORDERED: *HR* Morphine 10 MG/ML VIAL ONE (15:12)
--- NOTE | 2018-01-08 15:15 | Internal Med Progress Note ---
Hospitalist Progress Note - Encounter Date of Encounter: 01/08/18 Time of Encounter: 13:45 - Subjective Interval History: Ms Trejo is currently admitted for cellulitis and abscess area of R buttocks. She remains moderate to high risk. Ms Trejo went to OR this AM. She had area on buttocks opened. Cystic areas were cleared and pus was found. Packed. At this time she is having pain but tolerable. No fever or chills. No CP or SOB. No GI issues. - Exam Vitals: Temp Pulse Resp BP Pulse Ox 97.4 F L 93 18 110/74 92 01/08/18 14:00 01/08/18 14:00 01/08/18 14:00 01/08/18 14:00 01/08/18 14:00 Exam: General: Alert and oriented. No distress at this time. Skin: Normal color, no rash, no lesions. Area on buttocks packed. H: Normocephalic. EENT: EOMI, pupils equal. Mucus membranes moist. No lesion. Cardiovascular: Normal S1 & S2, no rubs, murmurs or gallops. No JVD. Pulse regular. Lungs: Normal breath sounds, no wheezes or crackles. Abdomen: Soft, non-tender, no rigidity. Normal bowel sounds. Extremities: No deformity, no edema or tenderness, no joint swelling or clubbing. Neurological: Normal cognition and motor skills. Pulses: Carotid and radial pulses normal +2. Rest of the physical exam is non contributory - Assessment and Plan (1) Cellulitis of buttock, right Current Visit: Yes Status: Acute Assessment and Plan: Appeared to stem from infected cyst. Currently on IV abx. Went to OR today for I&D. Packing in place now. (2) Infected sebaceous cyst Current Visit: Yes Status: Suspected Assessment and Plan: See above under cellulitis. (3) DVT prophylaxis Current Visit: Yes Status: Acute Assessment and Plan: EPCDs (4) Abnormal CT scan, pelvis Current Visit: Yes Status: Acute Assessment and Plan: Patient found to have hypodense material in the endometrial canal plan: follow up with PCP. (5) Hypokalemia Current Visit: Yes Status: Resolved Assessment and Plan: Present yesterday and now resolved. - Time Spent with Patient Total time spent is greater than 50% in coordination of care (as documented) at patient's floor/unit and/or counseling patient: Internal Medicine: Result - Labs CBC & Chem 7: 01/08/18 10:32 01/08/18 10:32 Labs: Short CBC 01/08/18 Range/Units 10:32 WBC 9.3 (4.3-11.1) K/mcL Hgb 11.7 (11.5-15.4) g/dL Hct 36.2 (35.3-44.9) % Plt Count 203 (140-400) K/mcL BMP 01/08/18 10:32 Sodium 137 Potassium 3.7 Chloride 105 Carbon Dioxide 27 BUN 9 Creatinine 0.69 Glucose 115 H Calcium 8.3 L - Impressions Impressions Extremity Ultrasound 01/07/18 12:28 IMPRESSION: Irregular hypoechoic area just deep to the dermis, measuring approximately 2.2 x 1.1 x 1.0 cm. A small draining tract to the skin is visualized. This appearance is most consistent with a sebaceous cyst, although superinfection/a small abscess cannot be radiographically excluded. D/ / 01/07/2018 16:48:16 Kem Rodriguez MD / melonie Interpreting Provider: Kem Rodriguez MD Consult Discharge Plan - Plan Additional Instructions: -finish antibiotics to completion -take ibuprofen as needed for pain. May also use tylenol if needed. -follow up with PCP in a week -return to ED if you develop fever, chills, worsened pain, spreading of erythema -follow up with your PCP on hypodense material in the endometrial canal. Will need ultrasound. Referrals: Evans Arciniega MD [Primary Care Provider] - Prescriptions: Amoxicillin/Clavulanate [Augmentin] 500 mg PO BIDWM #12 tablet Doxycycline Hyclate 100 mg PO BID #12 tablet. Ibuprofen 800 mg PO Q6H PRN #20 tablet PRN Reason: Pain
[2018-01-08] MEDS ORDERED: Gabapentin 100 MG CAPSULE PO SCH (21:00)
[2018-01-09] MEDS: Ampicillin/Sulbactam 1,500 MG in 0.9 % Sodium Chloride Mini Bag 100 ML IVPB SCH ×2 (00:26→06:07)
[2018-01-09 00:48] LABS: Hematocrit 35.9 % (35.3-44.9); Hemoglobin 11.6 g/dL (11.5-15.4); Mean Corpuscular HGB Conc 32.3 g/dL (31.6-35.5); Mean Corpuscular Hemoglobin 29.1 pg (28.0-33.3); Mean Corpuscular Volume 90.2 fL (83.0-100.0); Mean Platelet Volume 11.9 fL (9.4-12.4); Platelet Count 137 K/mcL (140-400); Red Blood Count 3.98 M/mcL (3.82-4.97); Red Cell Distribution Width 15.5 % (11.5-14.5)
[2018-01-09 01:08] LABS: BUN/Creatinine Ratio 18 (6-26); Blood Urea Nitrogen 13 mg/dL (8-23); Calcium 8.2 mg/dL (8.6-10.3); Carbon Dioxide 25 mEq/L (23-29); Chloride 105 mEq/L (98-107); Glucose 174 mg/dL (70-105); Osmolality,Calculated 284 (280-300); Potassium 4.5 mEq/L (3.5-5.1); Sodium 135 mEq/L (136-145); eGFR For Non-African Americans > 60 (> 60)
[2018-01-09 07:09] VITALS: BP 114/66
--- NOTE | 2018-01-09 09:25 | General Surgery Progress Note ---
<Jaja Santizo - Last Filed: 01/09/18 09:22> Date of Encounter: 01/09/18 Time of Encounter: 09:20 - Assessment and Plan (1) Cellulitis of buttock, right Status: Acute POD #1 I&D of right buttock abscess with Dr. Burroughs Continue daily wound care- cleanse with soap and water in the shower daily, pack open with with kerlex moistened with 0.9NS, cover with dry dressing and tape to secure daily and prn if soiled. (daughter states that she can do daily dressing changes) Transition to PO antibiotics per primary team at discharge Supportive care Surgery follow-up scheduled for 01/16/[address] Burroughs at 0900 in the outpatient surgery office Surgery will sign off at this time, please call with any further questions or concerns. Thank you for allowing us to participate in the care of this patient. Subjective Patient reports: no new complaints, still having pain (post-surgical pain), tolerating a regular diet, afebrile Objective Vital Signs - Last 8 Hours Temp Pulse Resp BP Pulse Ox 01/09/18 07:04 97.5 F L 55 16 114/66 92 01/09/18 03:27 97.8 F 66 15 132/74 93 Intake and Output 01/08/18 01/09/18 01/09/18 23:59 07:59 15:59 Intake Total 520 / 520 450 / 450 120 / 120 Output Total 500 / 500 400 / 400 Balance 20 / 20 50 / 50 120 / 120 Intake: IV Fluids 100 / 100 450 / 450 Unasyn 1,500 mg In 0.9 % Sodium 100 / 100 200 / 200 Chloride (Mini-Bag +) 100 ML @ 200 mls/hr IVPB Q6HR [facility]LO Rx#: [id number] Vancocin 1,500 MG In 0.9 % 250 / 250 Sodium Chloride 250 ML @ 166. 667 mls/hr IVPB Q24H [facility]LO Rx#: [id number] Oral 420 / 420 0 / 0 120 / 120 Output: Urine 500 / 500 400 / 400 Other: Meal Dinner Breakfast Percent of Meal Consumed 25% 5% # Bowel Movements 0 0 Weight 86.1 kg Patient Weight 01/09/18 23:59 Weight 86.1 kg - General physical appearance well developed, well nourished, moderate pain - Eyes normal ocular movement - ENT normal mucosa, atraumatic, normocephalic - Neck Neck exam: trachea midline - Respiratory normal respiratory effort - Abdomen Abdomen: Present: soft, non tender - Incision Incision: Present: open (Right buttock with open wound- surrounding erythema and induration resolved, small amount of serousang. drainage noted.) - Neurologic CN 2-12 grossly intact - Psychiatric oriented to time, oriented to person, oriented to place, speech is normal, memory intact - Labs 01/09/18 00:23 01/09/18 00:23 Diabetes panel 01/09/18 Range/Units 00:23 Sodium 135 L (136-145) mEq/L Potassium 4.5 (3.5-5.1) mEq/L Chloride 105 (98-107) mEq/L Carbon Dioxide 25 (23-29) mEq/L BUN 13 (8-23) mg/dL Creatinine 0.72 (0.60-1.20) mg/dL Glucose 174 H (70-105) mg/dL Calcium 8.2 L (8.6-10.3) mg/dL Calcium panel 01/09/18 Range/Units 00:23 Calcium 8.2 L (8.6-10.3) mg/dL Pituitary panel 01/09/18 Range/Units 00:23 Sodium 135 L (136-145) mEq/L Potassium 4.5 (3.5-5.1) mEq/L Chloride 105 (98-107) mEq/L Carbon Dioxide 25 (23-29) mEq/L BUN 13 (8-23) mg/dL Creatinine 0.72 (0.60-1.20) mg/dL Glucose 174 H (70-105) mg/dL Calcium 8.2 L (8.6-10.3) mg/dL Adrenal panel 01/09/18 Range/Units 00:23 Sodium 135 L (136-145) mEq/L Potassium 4.5 (3.5-5.1) mEq/L Chloride 105 (98-107) mEq/L Carbon Dioxide 25 (23-29) mEq/L BUN 13 (8-23) mg/dL Creatinine 0.72 (0.60-1.20) mg/dL Glucose 174 H (70-105) mg/dL Calcium 8.2 L (8.6-10.3) mg/dL Consult Discharge Plan - Plan Instructions: Cellulitis (DC), Acute Wound Care (DC), Incision and Drainage (DC ) Additional Instructions: -finish antibiotics to completion -take ibuprofen as needed for pain. May also use tylenol if needed. -follow up with PCP in a week -return to ED if you develop fever, chills, worsened pain, spreading of erythema -follow up with your PCP on hypodense material in the endometrial canal. Will need ultrasound. Wound care- Continue daily wound care- cleanse with soap and water in the shower daily, pack open with with kerlex moistened with 0.9NS, cover with dry dressing and tape to secure daily and prn if soiled. (daughter states that she can do daily dressing changes) Referrals: Magno Burroughs MD [Non-Partnered Physician] - 01/16/18 9:00 am (surgery follow- up) Evans Arciniega MD [Primary Care Provider] - 01/16/18 1:30 pm Prescriptions: Ondansetron HCl [Zofran] 4 mg PO Q8HR PRN 10 Days #30 tab PRN Reason: Nausea Clindamycin HCl 300 mg PO QID 10 Days #40 capsule HYDROcodone/Acet 7.5/325 mg [[place] 7.5-325 mg] 1 tab PO TID 5 Days #15 tablet - Attending Attestation For this encounter, I have reviewed the SERVER PROGRAMMER or PA documentation, treatment plan, and medical decision making; and I have had face to face time with this patient. <Mango Burroughs - Last Filed: 01/10/18 07:57> Date of Encounter: 01/10/18 Objective Intake and Output 01/09/18 01/09/18 01/10/18 15:59 23:59 07:59 Intake Total 360 / 360 Output Total 0 / 0 Balance 360 / 360 Intake: Oral 360 / 360 Output: Urine 0 / 0 Other: Meal Lunch Percent of Meal Consumed 50% # Bowel Movements 0 - Labs 01/09/18 00:23 01/09/18 00:23 - Attending Attestation patient seen and examined. i have reviewed all pertinent notes, imaging, and labs. I have reviewed the above assessment and plan and agree with the above. follow up in my wound clinic in 2 weeks
--- NOTE | 2018-01-09 09:26 | General Surgery Progress Note ---
Date of Encounter: 01/09/18 Time of Encounter: 09:25 Subjective Patient reports: no new complaints, feels better, still having pain, pain is less, afebrile Objective Vital Signs - Last 8 Hours Temp Pulse Resp BP Pulse Ox 01/09/18 07:04 97.5 F L 55 16 114/66 92 01/09/18 03:27 97.8 F 66 15 132/74 93 Intake and Output 01/08/18 01/09/18 01/09/18 23:59 07:59 15:59 Intake Total 520 / 520 450 / 450 120 / 120 Output Total 500 / 500 400 / 400 Balance 20 / 20 50 / 50 120 / 120 Intake: IV Fluids 100 / 100 450 / 450 Unasyn 1,500 mg In 0.9 % Sodium 100 / 100 200 / 200 Chloride (Mini-Bag +) 100 ML @ 200 mls/hr IVPB Q6HR [facility] Rx#: [id number] Vancocin 1,500 MG In 0.9 % 250 / 250 Sodium Chloride 250 ML @ 166. 667 mls/hr IVPB Q24H [facility]LO Rx#: [id number] Oral 420 / 420 0 / 0 120 / 120 Output: Urine 500 / 500 400 / 400 Other: Meal Dinner Breakfast Percent of Meal Consumed 25% 5% # Bowel Movements 0 0 Weight 86.1 kg Patient Weight 01/09/18 23:59 Weight 86.1 kg - General physical appearance no distress - Respiratory normal expansion, normal respiratory effort - Cardiovascular Cardiovascular exam: Present: RRR - Integumentary no rash, other (decreased erythema; ) - Neurologic CN 2-12 grossly intact - Labs 01/09/18 00:23 01/09/18 00:23 Diabetes panel 01/09/18 Range/Units 00:23 Sodium 135 L (136-145) mEq/L Potassium 4.5 (3.5-5.1) mEq/L Chloride 105 (98-107) mEq/L Carbon Dioxide 25 (23-29) mEq/L BUN 13 (8-23) mg/dL Creatinine 0.72 (0.60-1.20) mg/dL Glucose 174 H (70-105) mg/dL Calcium 8.2 L (8.6-10.3) mg/dL Calcium panel 01/09/18 Range/Units 00:23 Calcium 8.2 L (8.6-10.3) mg/dL Pituitary panel 01/09/18 Range/Units 00:23 Sodium 135 L (136-145) mEq/L Potassium 4.5 (3.5-5.1) mEq/L Chloride 105 (98-107) mEq/L Carbon Dioxide 25 (23-29) mEq/L BUN 13 (8-23) mg/dL Creatinine 0.72 (0.60-1.20) mg/dL Glucose 174 H (70-105) mg/dL Calcium 8.2 L (8.6-10.3) mg/dL Adrenal panel 01/09/18 Range/Units 00:23 Sodium 135 L (136-145) mEq/L Potassium 4.5 (3.5-5.1) mEq/L Chloride 105 (98-107) mEq/L Carbon Dioxide 25 (23-29) mEq/L BUN 13 (8-23) mg/dL Creatinine 0.72 (0.60-1.20) mg/dL Glucose 174 H (70-105) mg/dL Calcium 8.2 L (8.6-10.3) mg/dL Consult Discharge Plan - Plan Additional Instructions: -finish antibiotics to completion -take ibuprofen as needed for pain. May also use tylenol if needed. -follow up with PCP in a week -return to ED if you develop fever, chills, worsened pain, spreading of erythema -follow up with your PCP on hypodense material in the endometrial canal. Will need ultrasound. Referrals: Evans Arciniega MD [Primary Care Provider] -
[2018-01-09] MEDS ORDERED: Aminoglycoside Consult 1 EACH MC ONE (13:18)
== END 2018-01-09 13:19 | disposition home or self-care (01) | DRG 581 ==
LOC: EMEROOARM 20:42 → 3ANU 20:42 → SUATTDRO 01-06 02:09 → 3ANU 01-06 02:27
PROVIDERS: ADMIT Pediatrics; ATTEND Internal Medicine

== ENCOUNTER 2020-12-21 10:57 | Inpatient (IN) ==
[2020-12-21 12:00] LABS: Basophils % 0.3 %; Eosinophils # 0.2 K/mcL (0.0-0.6); Eosinophils % 2.5 %; Hematocrit 30.6 % (35.3-44.9); Hemoglobin 9.3 g/dL (11.5-15.4); Immature Granulocytes % 0.2 % (0-4); Lymphocytes # 1.9 K/mcL (0.6-4.6); Lymphocytes % 32.4 %; Mean Corpuscular HGB Conc 30.4 g/dL (31.6-35.5); Mean Corpuscular Hemoglobin 25.4 pg (28.0-33.3); Mean Corpuscular Volume 83.6 fL (83.0-100.0); Mean Platelet Volume 11.3 fL (9.4-12.4); Monocytes # 0.5 K/mcL (0.0-1.3); Monocytes % 8.4 %; Neutrophils # 3.3 K/mcL (1.6-8.9); Platelet Count 248 K/mcL (140-400); Red Blood Count 3.66 M/mcL (3.82-4.97); Segmented Neutrophils % 56.2 %; White Blood Count 5.9 K/mcL (4.3-11.1)
[2020-12-21 12:16] LABS: Alanine Aminotransferase 10 Units/L (7-52); Albumin 3.7 g/dL (3.5-5.7); Albumin/Globulin Ratio 1.5 (1.1-2.2); Alkaline Phosphatase 82 Units/L (34-104); Aspartate Amino Transferase 14 Units/L (13-39); BUN/Creatinine Ratio 17 (6-26); Bilirubin,Total 0.3 mg/dL (0.3-1.0); Blood Urea Nitrogen 14 mg/dL (8-23); Calcium 8.7 mg/dL (8.6-10.3); Carbon Dioxide 27 mEq/L (23-29); Chloride 107 mEq/L (98-107); Globulin 2.5 g/dL (2.4-3.5); Glucose 109 mg/dL (70-105); Osmolality,Calculated 291 (280-300); Sodium 140 mEq/L (136-145); Total Protein 6.2 g/dL (6.4-8.9); Troponin I < 0.03 ng/mL (< 0.04); eGFR For African Americans > 60 (> 60); eGFR For Non-African Americans > 60 (> 60)
[2020-12-21] MEDS ORDERED: Furosemide 20 MG/2 ML VIAL IVP ONE (12:41)
[2020-12-21] MEDS ORDERED: Naloxone 0.4 MG/ML INJ IVP PRN (14:23)
[2020-12-21] MEDS ORDERED: Acetaminophen 325 MG TABLET PO PRN (14:23)
[2020-12-21] MEDS ORDERED: Ondansetron 4 MG/2 ML VIAL IVP PRN (14:23)
[2020-12-21] MEDS ORDERED: Perflutren Lipid Microsphere 1.3 ML in 0.9 % Sodium Chloride 8.7 ML IVP PRN (14:25)
[2020-12-21] MEDS: Furosemide 40 MG/4 ML VIAL IVP SCH (16:40)
[2020-12-22 05:58] LABS: Basophils % 0.5 %; Eosinophils # 0.1 K/mcL (0.0-0.6); Eosinophils % 2.1 %; Hematocrit 29.3 % (35.3-44.9); Immature Granulocytes % 0.2 % (0-4); Lymphocytes # 1.8 K/mcL (0.6-4.6); Lymphocytes % 30.7 %; Mean Corpuscular HGB Conc 30.7 g/dL (31.6-35.5); Mean Corpuscular Hemoglobin 25.2 pg (28.0-33.3); Mean Corpuscular Volume 82.1 fL (83.0-100.0); Mean Platelet Volume 10.5 fL (9.4-12.4); Monocytes # 0.5 K/mcL (0.0-1.3); Monocytes % 8.8 %; Neutrophils # 3.3 K/mcL (1.6-8.9); Platelet Count 242 K/mcL (140-400); Red Blood Count 3.57 M/mcL (3.82-4.97); Red Cell Distribution Width 16.7 % (11.5-14.5); Segmented Neutrophils % 57.7 %; White Blood Count 5.7 K/mcL (4.3-11.1)
[2020-12-22 06:23] LABS: % Iron Saturation 7 % (15-50); BUN/Creatinine Ratio 18 (6-26); Blood Urea Nitrogen 13 mg/dL (8-23); Calcium 8.3 mg/dL (8.6-10.3); Carbon Dioxide 29 mEq/L (23-29); Chloride 105 mEq/L (98-107); Chol/HDL Ratio 2.9 (0-4.9); Cholesterol 133 mg/dL (< 200); Glucose 101 mg/dL (70-105); HDL Cholesterol 46 mg/dL (40-59); Iron 25 mcg/dL (50-170); LDL Cholesterol,Calculated 68 mg/dL (< 100); Magnesium 1.9 mg/dL (1.6-2.6); Osmolality,Calculated 292 (280-300); Potassium 3.4 mEq/L (3.5-5.1); Sodium 141 mEq/L (136-145); Transferrin 273 mg/dL (203-362); Triglycerides 93 mg/dL (< 150); eGFR For African Americans > 60 (> 60); eGFR For Non-African Americans > 60 (> 60)
[2020-12-22 06:30] LABS: Thyroid Stimulating Hormone 5.511 mcIU/mL (0.340-5.600)
[2020-12-22 06:40] LABS: Folate 9.4 ng/mL (3.0-16.0)
[2020-12-22] MEDS: *HR* Enoxaparin 40 MG/0.4 ML SYRINGE SQ SCH (06:44)
[2020-12-22 07:08] LABS: Estimated Average Glucose 140 mg/dl; Hemoglobin A1C 6.5 %
[2020-12-22 07:16] LABS: Ferritin < 8 ng/mL (10-120); Troponin I < 0.03 ng/mL (< 0.04)
[2020-12-22] MEDS: Furosemide 40 MG/4 ML VIAL IVP SCH ×2 (07:39→16:54)
[2020-12-22] MEDS ORDERED: Potassium Chloride Elixir 20 MEQ/15 ML UDC PO ONE (11:44)
[2020-12-22] MEDS: Cyanocobalamin (B-12) 1,000 MCG/ML VIAL SQ SCH (13:00)
[2020-12-22] MEDS: lisinopriL 5 MG TABLET PO SCH (13:01)
[2020-12-23] MEDS: *HR* Enoxaparin 40 MG/0.4 ML SYRINGE SQ SCH (05:34)
[2020-12-23 06:50] LABS: Basophils % 0.5 %; Eosinophils # 0.1 K/mcL (0.0-0.6); Eosinophils % 2.1 %; Hematocrit 30.1 % (35.3-44.9); Hemoglobin 9.3 g/dL (11.5-15.4); Immature Granulocytes % 0.2 % (0-4); Lymphocytes # 2.4 K/mcL (0.6-4.6); Lymphocytes % 41.6 %; Mean Corpuscular HGB Conc 30.9 g/dL (31.6-35.5); Mean Corpuscular Volume 80.9 fL (83.0-100.0); Mean Platelet Volume 10.9 fL (9.4-12.4); Monocytes # 0.6 K/mcL (0.0-1.3); Monocytes % 10.4 %; Neutrophils # 2.6 K/mcL (1.6-8.9); Platelet Count 263 K/mcL (140-400); Red Blood Count 3.72 M/mcL (3.82-4.97); Red Cell Distribution Width 16.8 % (11.5-14.5); Segmented Neutrophils % 45.2 %; White Blood Count 5.7 K/mcL (4.3-11.1)
[2020-12-23 07:10] LABS: BUN/Creatinine Ratio 21 (6-26); Blood Urea Nitrogen 16 mg/dL (8-23); Calcium 8.6 mg/dL (8.6-10.3); Carbon Dioxide 29 mEq/L (23-29); Chloride 102 mEq/L (98-107); Glucose 108 mg/dL (70-105); Osmolality,Calculated 288 (280-300); Potassium 3.7 mEq/L (3.5-5.1); Sodium 138 mEq/L (136-145); eGFR For African Americans > 60 (> 60); eGFR For Non-African Americans > 60 (> 60)
[2020-12-23 07:17] VITALS: BP 124/76; PULSE 81; TEMP 98.3; O2SAT 92
[2020-12-23] MEDS: lisinopriL 5 MG TABLET PO SCH (08:17)
[2020-12-23] MEDS: Cyanocobalamin (B-12) 1,000 MCG/ML VIAL SQ SCH (08:17)
[2020-12-23] MEDS: Furosemide 40 MG/4 ML VIAL IVP SCH (08:18)
== END 2020-12-23 10:41 | disposition home or self-care (01) | DRG 293 ==
LOC: EMEROOARM 10:57 → 3BNU 10:57 → SUATTDRO 14:03 → 3BNU 15:15
PROVIDERS: ADMIT Internal Medicine; ATTEND Internal Medicine